=== PATIENT | female | born 1990 | race African-American/Black ===

== ENCOUNTER 2018-09-13 05:05 | Day surgery (SDC) | payer OTHER ==
[2018-09-13] MEDS ORDERED: PREGNANCY TEST KIT 1 EACH KIT MC ONE (05:30)
[2018-09-13] MEDS ORDERED: LACTATED RINGERS 1,000 ML IV ONE (05:31)
[2018-09-13] MEDS ORDERED: ceFAZolin SODIUM 1 GM VIAL ONE (08:48)
[2018-09-13] MEDS ORDERED: NORMAL SALINE 1,000 ML IV.SOLN IV ONE (08:48)
[2018-09-13] MEDS ORDERED: DEXAMETHASONE SOD PHOS 4 MG/ML VIAL ONE (08:48)
[2018-09-13] MEDS ORDERED: THROMBIN (RECOMBINANT) 20,000 UNIT VIAL TP ONE (08:48)
[2018-09-13] MEDS ORDERED: ONDANSETRON HCL/PF 4 MG/ 2ML VIAL ONE (08:48)
[2018-09-13] MEDS ORDERED: LIDOCAINE HCL 2% PF 100MG/5ML VIAL IJ ONE (08:48)
[2018-09-13] MEDS ORDERED: NALOXONE HCL 0.4 MG/ML AMP ONE (08:48)
[2018-09-13] MEDS ORDERED: PROPOFOL 200 MG/20 ML VIAL IV ONE (08:48)
[2018-09-13] MEDS ORDERED: BACITRACIN 50,000 UNIT VIAL ONE (08:48)
[2018-09-13] MEDS ORDERED: SEVOFLURANE 250 ML LIQUID IH ONE (08:48)
[2018-09-13] MEDS ORDERED: SUGAMMADEX SODIUM 200 MG/2 ML VIAL IV ONE (08:48)
[2018-09-13] MEDS ORDERED: LACTATED RINGERS 1,000 ML IV.SOLN IV ONE ×2 (08:48)
[2018-09-13] MEDS ORDERED: fentaNYL CITRATE/PF 100 MCG/2 ML INJ. ONE ×3 (08:48→10:07)
[2018-09-13] MEDS ORDERED: PHENYLEPHRINE HCL 10 MG/1 ML ONE (08:48)
[2018-09-13] MEDS ORDERED: ROCURONIUM BROMIDE 10 MG/ML 5ML VIAL ONE (08:48)
[2018-09-14 09:38] VITALS: BP 133/75
== END 2018-09-13 10:50 | disposition other institution (70) ==
LOC: OPSURG 05:05
PROVIDERS: ATTEND Orthopaedic Surgery
DX: M51.37 Other intervertebral disc degeneration, lumbosacral region (principal); M51.27 Other intervertebral disc displacement, lumbosacral region
CPT/HCPCS: 22857; 36415; J0690; J1100; J2001; J2310; J2370; J2405; J2704; J3010; J3490; J7030; J7120; 86885; 86900; 86920; J2307; P9040

== ENCOUNTER 2018-09-13 10:51 | Inpatient (IN) | payer OTHER ==
[2018-09-13] MEDS ORDERED: PROMETHAZINE HCL 25 MG in 0.9 % SODIUM CHLORIDE 50 ML IV PRN (11:09)
[2018-09-13] MEDS ORDERED: diphenhydrAMINE HCL 50 MG/ML VIAL IVP PRN (11:09)
[2018-09-13] MEDS ORDERED: ONDANSETRON HCL/PF 4 MG/ 2ML VIAL IVP PRN (11:09)
[2018-09-13] MEDS ORDERED: ACETAMINOPHEN 500 MG TABLET PO PRN (11:09)
[2018-09-13] MEDS ORDERED: diphenhydrAMINE HCL 25 MG TABLET PO PRN (11:09)
--- NOTE | 2018-09-13 11:21 | History and Physical Report ---
History of Present Illnes - History of Present Illness Reason for Visit: S/P Lumbar Total Disc Replacement of L5/S1 History of Present Illness: Patient is a 28-year-old -[place] female that has a chronic history of lower back pain in which she has tried lumbar epidural injections which helped temporarily and she has tried physical therapy which only aggravated her symptoms. Patient and surgeon decided that they would proceed with a lumbar spine total disc replacement of L5/S1 bilateral. Procedure went well with no complications. - Past Medical History Musculoskeletal: Other (degenerative disc disease (lumbar)) - Past Surgical History Past Surgical History: Other (wisdom teeth removal) - Past Family History Father Family History: Cancer Mother Family History: DM, Other (obesity) - Past Social History Smoke: <1 pack per day Alcohol: Rare Drugs: None Lives: With Family Domestic Violence: Negative - Health Maintenance Health Maintenance: Tetanus Influenza Vaccine: No, Patient Refused Pneumonia Vaccine: No Resuscitation Status: Resusciation Status Resuscitation Status Full Code - Unable to Obtain History Unable to Obtain: No Review of Systems - Review of Systems Constitutional: negative: Fever, Chills Eyes: negative: pain ENT: negative: Ear Pain, Throat Pain Respiratory: negative: Cough, Shortness of Breath Cardiovascular: negative: Chest Pain, Light Headedness Gastrointestinal: Nausea, Abdominal Pain (from incision) Genitourinary: negative: Dysuria Musculoskeletal: Back Pain Skin: Other (abdominal incision) Neurological: negative: Weakness - Medications/Allergies Allergies/Adverse Reactions: Allergies Allergy/AdvReac Type Severity Reaction Status Date / Time No Known Allergies Allergy Unverified 09/13/18 11:09 Exam - Exam General: Alert, Oriented to Person, Oriented to Place, Oriented to Time, Cooperative, Mild distress HEENT: Atraumatic, Mouth Mucous membr. moist/[employer], Nose Mucous membr. moist/[employer] Neck: Normal Range of Motion Lungs: Clear to auscultation, Normal air movement, Speaks full Sentences Cardiovascular: Regular rate, Normal S1, Normal S2 Abdomen: Soft, Decreased Bowel Sounds Integumentary: Normal, [employer], Warm, Dry, Other (abdominal dressing dry/intact) Extremities: Normal pulses, No tenderness/swelling Neurological: Normal speech, Strength Equal Bilat, Normal tone, Sensation intact, Cranial nerves 3-12 NL Psych/Mental Status: Mental status NL, Mood NL, Appropriate Affect (playing game on phone) Assessment/Plan - Assessment/Plan (1) Status post lumbar surgery Status: Acute Current Visit: Yes Assessment: LCTA, HRRR, Abdomen soft, Dressing dry and intact, + bowel sounds- 2+ peripheral pulses, sensation intact, + neurovasculars intact Plan: Will have patient use Incentive spirometer frequently, ambulations, SCDs while in bed, will advance diet as tolerated, will provide appropriate pain control and nausea control (2) Degenerative disc disease at L5-S1 level Status: Acute Current Visit: Yes Assessment: S/P Lumbar total disc replacement of L5/S1 Bilateral VTE Assessment - RISK FACTOR SCORE VTE RISK FACTOR SCORES: SMOKER, MAJOR SURGERY/ANESTHESIA TIME > 1 HOUR (Heparin subq BID, frequent ambulation, SCDs while in bed)
[2018-09-13] MEDS: KETOROLAC TROMETHAMINE 30 MG/1ML VIAL IVP PRN ×2 (11:48→20:15)
[2018-09-13] MEDS: MORPHINE SULFATE 4 MG/ML VIAL IVP PRN ×2 (12:12→16:34)
[2018-09-13] MEDS: NICOTINE 14mg PATCH.TD24 TD SCH (13:02)
[2018-09-13 15:12] VITALS: BMI 32.7
[2018-09-13] MEDS: POTASSIUM CHLOR 20 MEQ D51/2NS 1,000 ML IV SCH (16:41)
[2018-09-13] MEDS: oxyCODONE/ACETAMINOPHEN 5/325 TABLET PO PRN (20:12)
[2018-09-13] MEDS: HEPARIN SODIUM 5000 UNIT/1 ML SQ SCH (21:06)
[2018-09-13] MEDS: DIAZEPAM 5 MG TABLET PO PRN (22:04)
[2018-09-14] MEDS: oxyCODONE/ACETAMINOPHEN 5/325 TABLET PO PRN ×4 (00:16→12:45)
[2018-09-14] MEDS: POTASSIUM CHLOR 20 MEQ D51/2NS 1,000 ML IV SCH ×2 (00:20→08:56)
[2018-09-14] MEDS: MORPHINE SULFATE 4 MG/ML VIAL IVP PRN (00:20)
[2018-09-14 07:57] LABS: BASOPHILS % 0.5 (0.0-1.5); EOSINOPHILS % 0.8 % (0.0-6.8); MEAN CORPUSCULAR HEMOGLOBIN 30.5 pg (28.0-34.0); MONOCYTES % 8.1 % (0.0-11.0); NEUTROPHILS # 8.8 # k/uL (1.4-7.7)
[2018-09-14 08:12] LABS: eGFR (Non-African) > 60
[2018-09-14] MEDS: HEPARIN SODIUM 5000 UNIT/1 ML SQ SCH (08:56)
[2018-09-14] MEDS: NICOTINE 14mg PATCH.TD24 TD SCH (08:56)
[2018-09-14] MEDS: DIAZEPAM 5 MG TABLET PO PRN (08:57)
--- NOTE | 2018-09-14 09:27 | Discharge Summary ---
Discharge Summary - Discharge Sumary History of Present Illness: Patient is a 28-year-old -[place] female that has a chronic history of lower back pain in which she has tried lumbar epidural injections which helped temporarily and she has tried physical therapy which only aggravated her symptoms. Patient and surgeon decided that they would proceed with a lumbar spine total disc replacement of L5/S1 bilateral. Procedure went well with no complications. Condition at Discharge: Stable Consultations this Visit: None Procedures this Visit: Other (S/P lumbar total disc replacement of L5/S1) Allergies/Adverse Reactions: Allergies Allergy/AdvReac Type Severity Reaction Status Date / Time No Known Allergies Allergy Verified 09/13/18 13:31 Discharge Summary: Patient is a 28-year-old female who has done well s/p lumbar total disc replacement- she has been up ambulating in the hallway, using incentive spirometer, and tolerating medications as directed and diet without nausea or vomiting. Patient educated on discharge instructions- discussed activity, medications, incision monitoring for infection- pt voices understanding- explained importance of keeping follow up appointment. Hospital Course: Patient was up and ambulatory. Using Incentive spirometer. SCDs while in bed - Final Diagnosis (1) Status post lumbar surgery Problems: Patient did well s/p surgery. LCTA, HRRR, abdomen soft with + bowel sounds- dressing is dry & intact, Neurovasculars intact- strong spa director/finance of upper extrem ities, positive sensation and good strength to bilateral lower extremities. Right or Left: Right (2) Degenerative disc disease at L5-S1 level Problems: S/p lumbar total disc replacement of L5/S1 Right or Left: Right
[2018-09-14 09:38] VITALS: BP 133/75
[2018-09-14] MEDS: KETOROLAC TROMETHAMINE 30 MG/1ML VIAL IVP PRN (11:40)
== END 2018-09-14 13:00 | disposition home or self-care (01) | DRG 552 ==
LOC: SOUTH 10:51
PROVIDERS: ADMIT Nurse Practitioner Family; ATTEND Nurse Practitioner Family
DX: M51.37 Other intervertebral disc degeneration, lumbosacral region (principal)
CPT/HCPCS: 80048; 85025; 97116; 97535; A9270; J1644; J1885; J2270; J7070; 99222; 99238